=== PATIENT | female | born 1955 | race Caucasian/White ===

== ENCOUNTER 2016-11-08 13:51 | Emergency (ER) | payer OTHER ==
[~2016-11-08] VITALS: Ht 182.9 cm; Wt 143.1 kg
[~2016-11-08 13:51] MED LIST: ADVAIR 500/501 DISK IH; ADVIL200 MG PO; CLONAZEPAM0.25 MG PO; DIOVAN HCT 31 TABLE1 PO; EFFEXOR XR150 MG PO; FOLIC ACID1 MG PO; FUROSEMIDE40 MG PO; HI-CAL250 MG PO; HUMIRA40 MG/0.1 SC; HUMULIN 70100 UNIT/3 SC; JANUVIA100 MG PO; LANTUS 3 M100 UNITS1 SC; LEVOFLOXACIN750 MG PO; LIPITOR5 MG PO; METFORMIN HCL500 MG PO; MIRALAX17 GM PO; MULTIVITAMIN1 EAC1 PO; NORVASC5 MG PO; NOVOLOG PE100 UNITS/ SC; OMEPRAZOLE40 M1 PO; OTEZLA30 MG PO; PERCOCET 5/31 TABLET PO; PREDNISONE20 MG PO; PREDNISONE5 MG PO; PROVENTIL17 GM IH; TOUJEO SOL300 UNIT/1 SC; TRAMADOL HCL100 MG PO; VALSARTAN-HCTZ1 EAC3 PO; [UNRECOGNIZED DRUG - OTHER] PO
[2016-11-08] MEDS ORDERED: LASIX20 MG PO (15:03)
[2016-11-08] MEDS ORDERED: COSENTYX P150 MG/11 SC (15:07)
[2016-11-08] MEDS ORDERED: EFFEXOR XR37.5 MG PO (15:08)
[2016-11-08] MEDS ORDERED: RESTASIS MULTI5.5 ML BOTH EYES (15:09)
[2016-11-08 15:47] VITALS: BP 138/58
== END 2016-11-08 15:48 | disposition home or self-care (01) ==
LOC: EME 13:51
DX: S09.90XA Unspecified injury of head, initial encounter (principal); S00.83XA Contusion of other part of head, initial encounter; M25.561 Pain in right knee; W01.0XXA Fall on same level from slipping, tripping and stumbling without subsequent striking against object, initial encounter; Y93.01 Activity, walking, marching and hiking; Y92.481 Parking lot as the place of occurrence of the external cause; K21.9 Gastro-esophageal reflux disease without esophagitis; I10 Essential (primary) hypertension; J45.909 Unspecified asthma, uncomplicated; E11.9 Type 2 diabetes mellitus without complications; Z79.4 Long term (current) use of insulin; Z87.442 Personal history of urinary calculi
CPT/HCPCS: 70450; 70486; 73564; 99281; 99284